=== PATIENT | female | born 1965 | race Caucasian/White ===

== ENCOUNTER 2024-06-15 08:28 | Outpatient (AMB) | payer OTHER, SELFPAY ==
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
[2024-06-15 08:38] VITALS: BP 124/78; PULSE 80; O2SAT 99; BMI 33.9
== END 2024-06-15 09:46 | disposition home or self-care (01) ==
PROVIDERS: PCP Internal Medicine; Visit Provider Nurse Practitioner Family
DX: R25.1 Tremor, unspecified (principal); R42 Dizziness and giddiness; M26.609 Unspecified temporomandibular joint disorder, unspecified side
CPT/HCPCS: 99204

== ENCOUNTER → 2024-06-15 08:28 | Outpatient (BNVA) | payer OTHER, SELFPAY | PROVIDERS: PCP Internal Medicine; Visit Provider Nurse Practitioner Family ==

== ENCOUNTER 2024-12-27 09:19 | Outpatient (AMB) | payer OTHER, SELFPAY ==
[2024-12-27 09:22] VITALS: BMI 34.5
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
[2024-12-27 09:28] VITALS: BP 124/90; PULSE 90; O2SAT 99; BMI 34.4
--- OUTSIDE RECORDS SUMMARY | 2024-12-27 10:10 | XMS_ITS | Clinical Summary ---
Author Organization [facility] Address [address] [place] [address] Care Team Providers Care Government Relations Director Name Role Phone Anshul Mcclellan MD Primary Care Provider Allergies Active Allergy Reactions Criticality Noted Date Comments Erythromycin 10/12/2005 Other Reaction(s): Rash/Dermatitis Pear 02/13/2024 Sulfa (Sulfonamide Antibiotics) Headache 10/12/2005 Medications meclizine (ANTIVERT) 25 mg tablet Take 1 Tablet by mouth 3 times daily as needed (vertigo). 12/06/2023 Active CHEWABLE MULTI VITAMIN ORAL Take by mouth. Active Active Problems Problem Noted Date Diagnosed Date Palpitations 08/10/2024 Overview (11/05/2024): Last Assessment & Plan: Infrequent. Likely a perceptive awareness of premature beats and possibly stress related. That said, it does not sound like she has any high risk or concerning features. I reviewed that if burden increases, we could always repeat a Holter monitor or some other monitor. In addition, I reviewed signs and symptoms to look out for to seek emergency medical care which she verbalized understanding of. Chest pain 08/09/2024 Overview (11/05/2024): Last Assessment & Plan: Atypical in nature and symptoms have essentially resolved with healthier lifestyle and improvement in psychosocial stressors. She has also been seeking therapy for anxiety. I encouraged her in continuing all of these things. However given family history of coronary disease and an uncle and her maternal grandfather, I think it would be reasonable to obtain a screening lipid profile. I have ordered this. Continue surveillance of blood pressure and other modifiable risk factors during PCP visits here forward. No further cardiac testing indicated. Attention deficit hyperactiv ity disorder (ADHD), combined type 09/11/2021 Obesity (BMI 30.0-34.9) 12/29/2018 Diverticulitis 06/01/2018 Overview (11/05/2024): s/p sigmoidectomy August 2018; colostomy takedown December 2018 Low grade squamous intraepit helial lesion (LGSIL) on Papanicolaou smear of cervix 05/31/2017 Overview (11/05/2024): 03/2016 LSIL 04/2016 Neg colpo 04/2017 NSIL HSV-1 (herpes simplex virus 1) infection 010 HSV-2 (herpes simplex virus 2) infection 010 Tinnitus 09/23/2010 Vertigo 09/23/2010 Postconcussion syndrome 10/12/2005 Immunizations Name Administration Dates Next Due Influenza Quadravalent, MDCK , 0.5ml, preservative free (Flucelvax) 6mo and older 08/25/2021,08/27/2018 Influenza Quadravalent, MDCK , 0.5ml, with preservative (Flucelvax) 6mo and older 08/21/2017 Influenza trivalent, 0.5mL, preservative free (Fluarix; FluLaval; Fluzone) ages 6mo and older (Afluria) 3 years and older 08/29/2016 [employer] SARS-CoV-2 COVID -19, vector-nr, rS-Ad26, preservative free 06/11/2021 Td Tetanus diptheria (Tdvax) 7yo and older 07/02 Td, Unspecified 06/04/2003 Surgical History Surgery Date Site/Laterality Comments TONSILLECTOMY PROCEDURE: HISTORICAL TONSILLECTOMY CHOLECYSTECTOMY 12/2016 PROCEDURE: LAPAROSCOPY, CHOLECYSTECTOMY OTHER SURGICAL HISTORY 2018 PROCEDURE: PA LAPAROSCOPY COLECTOMY PARTIAL W/ANASTOMOSIS; COMMENT: Perforated diverticulitis, lysis of adhesions, colectomy OTHER SURGICAL HISTORY PROCEDURE: HISTORY OTHER; COMMENT: mcconnell proceedure for perf divirticulitis 2017 [address] lewis [facility] COLONOSCOPY 2019 PROCEDURE: HISTORICAL COLONOSCOPY; COMMENT: dr lewis OTHER SURGICAL HISTORY PROCEDURE: HISTORY OTHER; COMMENT: Colostomy closure 2018 Medical History Medical History Date Comments Herpes genitalis DX:Herpes genit renzo; COMMENT: outbreaks q2 years Obese DX:Obese Diverticulitis 06/01/2018 DX:Diverticuliti s Family History Medical History Relation Name Comments No Known Problems Daughter Esophageal cancer Father Heart attack Maternal Grandfather Testicular cancer Maternal Grandfather Other: polyps Mother crohns disease Uterine cancer Mother Diabetes Paternal Grandmother No Known Problems Son Crohn's disease Uncle Heart attack Uncle SCD at young ag e Breast cancer Neg Hx Colon cancer Neg Hx Ovarian cancer Neg Hx Relation Name Status Comments Daughter Alive Father esohageal cance r Maternal Grandfather Maternal Grandmother renal d isease Mother Alive Kidney disease, crohns disease Paternal Grandmother diabete s Son Alive Uncle Social History Tobacco Use Types Packs/Day Years Used Date Smoking Tobacco: Never Smokeless Tobacco: Never Alcohol Use Standard Drinks/Week Comments Yes 0 (1 standard drink = 0.6 oz pur e alcohol) Comments Unknown Sex and Gender Information Value Date Recorded Sex Assigned at Not on file Legal Sex Female 7:41 AM EST Gender Identity Not on file Sexual Orientation Not on file Obstetrics History Last Filed Vital Signs Vital Sign Reading Time Taken Comments Blood Pressure 142/90 08/10/2024 8:13 AM EDT Sit ting R Arm Pulse 88 08/10/2024 8:13 AM EDT Temperature - - Respiratory Rate - - Oxygen Saturation - - Inhaled Oxygen Concentration - - Weight 96.2 kg (212 lb) 08/10/2024 8:13 AM EDT Height 168.3 cm (5' 6.25 ) 08/10/2024 8:13 AM ED T Body Mass Index 33.96 08/10/2024 8:13 AM EDT Plan of Treatment Upcoming Encounters Date Type Department Care Team (Late st Contact Info) Description 12/29/2024 9:30 AM EST Appointment Radiology Department [address] [id number] Health Maintenance Due Date Last Done Comments Hepatitis B Vaccines (1 of 3 - 19+ 3-dose series) 1986 Pneumococcal Vaccine: 50+ Years (1 of 1 - PCV) 2017 Zoster Vaccines (1 of 2) 2017 DTaP,Tdap,and Td Vaccines (3 - Td or Tdap) 07/02/2021 07/02/2011, 06/04/2003 Depression Screening 10/09/2022 Social Influencers of Health Screening 10/09/2022 Cervical Cancer Screening: Pap Smear 12/01/2022 12/01/2021, 06/16/2018, 06/16/2018 COVID-19 Vaccine ( season) 2024 06/11/2021 Influenza Vaccine (#1) 2024 , 08/27/2018, 08/21/2017, Additional history exists Breast Cancer Screening 12/03/2025 12/03/19, 11/20/2022, 11/09/2021, Additional history exists Colorectal Cancer Screening: Colonoscopy 12/19/2028 12/19/2018 HIV Screening Completed 06/19/2005 Hepatitis C Screening Completed 01/12/2024 HIB Vaccines Aged Out No longer eligi ble based on patient's age to complete this topic HPV Vaccines Aged Out No longer eligi ble based on patient's age to complete this topic Hepatitis A Vaccines Aged Out No long er eligible based on patient's age to complete this topic IPV Vaccines Aged Out No longer eligi ble based on patient's age to complete this topic MMR Vaccines Aged Out No longer eligi ble based on patient's age to complete this topic Meningococcal ACWY Vaccine Aged Out N o longer eligible based on patient's age to complete this topic Meningococcal B Vacine Aged Out No lo nger eligible based on patient's age to complete this topic Pneumococcal Vaccine: Pediatrics (0 to 5 Years) and At-Risk Patients (6 to 64 Years) Aged Out No longer eligible based on patient's age to complete this topic RSV Immunization Patients Under 20 months Aged Out No longer eligible based on patient's age to complete this topic Varicella Vaccines Aged Out No longer eligible based on patient's age to complete this topic Procedures Procedure Name Priority Date/Time Associated Diagnosis Comments HEPATITIS C SCREENING Routine 01/12/2024 SCREENING MAMMOGRAPHY BI 2-VIEW BREAST INC CAD Routine 12/03/2023 10:29 AM EST Encounter for screening mammogram for malignant neoplasm of breast HM PAP SMEAR Routine 12/01/2021 COLONOSCOPY Routine 12/19/2018 HIV SCREENING Routine 06/19/2005 from Last 3 Months or Most Recently Relevant to Health Maintenance Results * Hepatitis C Screening (01/12/2024) Hepatitis C Screening Abstracted Historical Provider MD HEALTH MAINTENANCE Final Result * SCREENING MAMMOGRAPHY BI 2-VIEW BREAST INC CAD (12/03/2023 10:29 AM EST) Anatomical Region Laterality Modality Radiographic Amber ging 11/20/2022 9:54 AM EST Narrative 12/05/2023 5:40 PM EST This is a summary report. The complete report is available in the patient's medical record. If you cannot access the medical record, please contact the sending organization for a detailed fax or copy. Exam: Screening mammogram Findings: Digital bilateral full-field screening mammography is performed with tomosynthesis and interpreted with the aid of computer-aided detection. ??Comparison is made with 11/20/2022 and as far back as 02/03/2019. Breast parenchyma is heterogeneously dense, which may obscure small masses. ??No new suspicious mass, architectural distortion, or suspicious calcifications. Impression: No mammographic evidence of malignancy. BI-RADS 1 - negative Procedure Note Suly Fleming MD - 06/18/2024 This is a summary report. The complete report is available in thepatient's medical record. If you cannot access the medical record, pleasecontact the sending organization for a detailed fax or copy. Exam: Screening mammogram Findings: Digital bilateral full-field screening mammography is performedwith tomosynthesis and interpreted with the aid of computer-aideddetection. Comparison is made with 11/20/2022 and as far back as02/03/2019. Breast parenchyma is heterogeneously dense, which may obscure smallmasses. No new suspicious mass, architectural distortion, or suspiciouscalcifications. Impression: No mammographic evidence of malignancy. BI-RADS 1 - negative Jeff Teran MD IMG XR PROCEDURES Final Re sult * Pap Smear (12/01/2021) Pap smear No Interpretation , Abstracted Historical Provider HEALTH MAINTENANCE Final Result * Colonoscopy (12/19/2018) Colonoscopy No Interpretation , Abstracted Anatomical Region Laterality Modality Other Historical Provider HEALTH MAINTENANCE Final Result * HIV Screening (06/19/2005) HIV Screening Abstracted Historical Provider HEALTH MAINTENANCE Final Result from Last 3 Months or Most Recently Relevant to Health Maintenance [place] [address] [address] Care Teams Government Relations Director Relationship Specialty Start Date End Date Anshul Mcclellan MD [address] [place] [id number] PCP - General 12/12/23
== END 2024-12-27 10:26 | disposition home or self-care (01) ==
PROVIDERS: PCP Internal Medicine; Visit Provider Nurse Practitioner Family
DX: R25.1 Tremor, unspecified (principal); R42 Dizziness and giddiness; M26.609 Unspecified temporomandibular joint disorder, unspecified side
CPT/HCPCS: 99213

== ENCOUNTER 2025-06-28 10:28 | Outpatient (AMB) | payer OTHER, SELFPAY ==
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
[2025-06-28 10:31] VITALS: BP 128/82; PULSE 82; O2SAT 99; BMI 34.2
--- OUTSIDE RECORDS SUMMARY | 2025-06-28 11:10 | XMS_ITS | Clinical Summary ---
Author Organization [facility] [address] [place] [address] [place] [phone] Phone Care Team Providers Care Manager Hardware Name Role Phone Anshul Mcclellan MD Primary Care Provider Allergies Active Allergy Reactions Criticality Noted Date Comments Erythromycin 10/12/2005 Other Reaction(s): Rash/Dermatitis Pear 02/13/2024 Sulfa (Sulfonamide Antibiotics) Headache 10/12/2005 Medications CHEWABLE MULTI VITAMIN ORAL Take by mouth. Active multivit with minerals/lutein (MULTIVITAMIN 50 PLUS ORAL) Take 1 tablet by mouth. 7 Active pantoprazole (Protonix) 20 mg EC tablet Take 1 tablet (20 mg total) by mouth 1 (one) time each day before breakfast. Do not crush, chew, or split. 90 each 1 5 Active simethicone (Mylanta Gas) 125 mg chewable tablet Chew 1 tablet (125 mg total) every 6 (six) hours if needed (Burping). 360 each 5 Active omega-3 acid ethyl esters (LOVAZA) 1 gram capsule Take 1 capsule (1 g total) by mouth 2 (two) times a day. 06/03/20 25 Discontinu ed(Therapy completed) Active Problems Problem Noted Date Diagnosed Date Diverticula of intestine 04/15/2025 Palpitations 08/10/2024 Overview (11/05/2024): Last Assessment & [...] Tinnitus 09/23/2010 Vertigo 09/23/2010 Postconcussion syndrome 10/12/2005 Encounters Date Type Department Care Team Description 06/03/2025 8:00 AM EDT Office Visit Adult Medicine [address] [phone] Kate Barber PA Routine general medical examination at a health care facility (Primary Dx); Pure hypercholesterolemi a; IFG (impaired fasting glucose) 06/03/2025 Telephone Adult Medicine [address] [phone] Kate Barber PA 05/17/2025 2:40 PM EDT Office Visit Gastroenterology - [address] [place] [phone] Latha Zarco PA Morrell's esophagus without dysplasia (Primary Dx) 04/15/2025 1:21 PM EDT Anesthesia Event [facility] Endoscopy [address] [place] [phone] Rigoberto Monaco MD 04/15/2025 12:30 PM EDT - 04/15/2025 11:59 PM EDT Hospital Encounter [facility] Endoscopy [address] [place] [phone] Everett Elena MD Sobo, Kathleen, DANNIE Family hx colonic polyps; Dyspepsia Discharge Disposition: Home or Self Care 04/10/2025 Telephone Gastroenterology - [address] [place] [phone] Germán Fowler MD 04/09/2025 3:30 PM EDT Consult Gastroenterology - [address] [place] [phone] Lizzy Chandler NP Colon cancer screening (Primary Dx); Burping; Belching symptom 03/28/2025 12:00 PM EDT Office Visit Adult Medicine [address] [phone] Anshul Mcclellan MD Burping (Primary Dx); Belching symptom; Gastroesophageal reflux disease, unspecified whether esophagitis present; Encounter for screening for malignant neoplasm of colon from Last 3 Months Immunizations Name Administration Dates Next Due Influenza Quadravalent, MDCK , 0.5ml, preservative free (Flucelvax) 6mo and older 08/25/2021,08/27/2018 Influenza Quadravalent, MDCK , 0.5ml, with preservative (Flucelvax) 6mo and older 08/21/2017 Influenza trivalent, 0.5mL, preservative free (Fluarix; FluLaval; Fluzone) ages 6mo and older (Afluria) 3 years and older 08/29/2016 [employer] [facility] [employer] SARS-CoV-2 COVID -19, vector-nr, rS-Ad26, preservative free 06/11/2021 Td Tetanus diptheria (Tdvax) 7yo and older 07/02 Td, Unspecified 06/04/2003 Tdap Tetanus diptheria acell ular pertussis (Boostrix; Adacel) 7yo and older 06/03/2025 Surgical History Surgery Date Site/Laterality Comments TONSILLECTOMY PROCEDURE: HISTORICAL TONSILLECTOMY CHOLECYSTECTOMY 12/2016 PROCEDURE: LAPAROSCOPY, CHOLECYSTECTOMY OTHER SURGICAL HISTORY 2018 PROCEDURE: [place] LAPAROSCOPY COLECTOMY PARTIAL W/ANASTOMOSIS; COMMENT: Perforated diverticulitis, lysis of adhesions, colectomy OTHER SURGICAL HISTORY PROCEDURE: HISTORY OTHER; COMMENT: mcconnell proceedure for perf divirticulitis [address] [facility] [place] COLONOSCOPY 2019 PROCEDURE: HISTORICAL COLONOSCOPY; COMMENT: dr lewis OTHER SURGICAL HISTORY PROCEDURE: HISTORY OTHER; COMMENT: Colostomy closure 2019 COLONOSCOPY 04/15/2025 TA x 1, recall 5 years ESOPHAGOGASTRODUODENOSCOPY 04/15/2025 Morrell's esophagus negative for dysplasia, recall 3 years Medical History Medical History Date Comments Herpes genitalis Outbreaks q 2 y ears Obese Diverticulitis GERD (gastroesophageal reflux disease) Family History Medical History Relation Name Comments No Known Problems Brother No Known Problems Daughter Esophageal cancer Father Heart attack Maternal Grandfather Testicular cancer Maternal Grandfather Kidney disease Maternal Grandmother Other: polyps Mother crohns disease , kidney disease, uterine cancer No Known Problems Paternal Grandfather Diabetes Paternal Grandmother No Known Problems Son Crohn's disease Uncle Heart attack Uncle SCD at young ag e Breast cancer Neg Hx Colon cancer Neg Hx Ovarian cancer Neg Hx Relation Name Status Comments Brother Alive Daughter Alive Father Maternal Grandfather Maternal Grandmother Mother Alive Paternal Grandfather Paternal Grandmother Son Alive Uncle Social History Tobacco Use Types Packs/Day Years Used Date Smoking Tobacco: Never Smokeless Tobacco: Never Tobacco Cessation:Counseling Given: Not Answered Alcohol Use Standard Drinks/Week Comments Yes 0 (1 standard drink = 0.6 oz pur e alcohol) rare Housing Instability Answer Date Recorde d Are you worried that in the next 2 months you may not have stable housing? No 06/03/2025 Food Access & Nutrition Answer Date Rec orded Do you have access to a vari ety of food including fruits and vegetables? Yes 06/03/2025 Access to Healthcare Answer Date Record ed Within the last 3 months, ho w many times did you visit the emergency department for your medical care? 0 06/03/2025 Health Literacy Answer Date Recorded How often do you need to hav e someone help you when you read instructions, pamphlets, or other written material from your doctor or pharmacy? Never 06/03/2025 Caregiver: How often do you need to have someone help you when you read instructions, pamphlets, or other written material from your doctor or pharmacy? Not on file 06/03/2025 Financial Risk Answer Date Recorded How hard is it for you to pa y for the very basics like food, housing, medical care, and air conditioning / heating? Not very hard 06/03/2025 Transportation Answer Date Recorded Has the lack of transportati on kept you from meetings, work, or from getting things needed for daily living? No Has the lack of transportati on kept you from medical appointments or from getting medications? Yes 06/03/2025 Social Isolation Answer Date Recorded How often do you feel lonely or isolated from th ose around you? Never 06/03/2025 Food Risk Answer Date Recorded Within the past 12 months we worried whether our food would run out before we got money to buy more. Never true 06/03/2025 Within the past 12 months th e food we bought just didn't last and we didn't have money to get more. Never true 06/03/2025 Dependent Care Answer Date Recorded Do you need help finding or paying for care for your loved ones. For example, child protection specialist or elderly care for an older adult? No 06/03/2025 Education Answer Date Recorded Do you think completing more education or training, like finishing a GED, going to college, or learning a trade, would be helpful for you? No 06/03/2025 Employment and Income Answer Date Recor ded During the last four weeks, have you been actively looking for work? No 06/03/2025 Living Situation Answer Date Recorded What is your living situation? 0 06/03/2025 Interpersonal Safety Answer Date Record ed Physical Abuse 04/15/2025 Verbal Abuse 04/15/2025 Comments No Sex and Gender Information Value Date Recorded Sex Assigned at Female 04/15/2025 12:27 PM EDT Legal Sex Female 7:41 AM EST Gender Identity Female 04/15/2025 12:27 PM EDT Sexual Orientation Straight 04/15/2025 12 :27 PM EDT Occupation Industry Job Start Date Job End Date works for [employer] Not on file Not on file Not on file Obstetrics History Last Filed Vital Signs Vital Sign Reading Time Taken Comments Blood Pressure 132/85 06/03/2025 8:01 AM EDT Pulse 83 06/03/2025 8:01 AM EDT Temperature 36.2 C (97.2 F) 06/03/2025 8:01 AM EDT Respiratory Rate 16 06/03/2025 8:01 AM EDT Oxygen Saturation 99% 06/03/2025 8:01 AM EDT Inhaled Oxygen Concentration - - Weight 98 kg (216 lb) 06/03/2025 8:01 AM EDT Height 168.3 cm (5' 6.25 ) 06/03/2025 8:01 AM ED T Body Mass Index 34.6 06/03/2025 8:01 AM EDT Plan of Treatment Upcoming Encounters Date Type Department Care Team (Late st Contact Info) Description 07/27/2025 10:30 AM EDT Appointment Radiology Department - [address] [phone] 06/10/2026 9:00 AM EDT Office Visit Adult Medicine [address] [phone] Anshul Mcclellan MD [address] [place] [phone] Health Maintenance Due Date Last Done Comments Hepatitis B Vaccines (1 of 3 - 19+ 3-dose series) 1986 Pneumococcal Vaccine: 50+ Years (1 of 1 - PCV) 2017 Zoster Vaccines (1 of 2) 2017 Cholesterol Screening (Lipid Panel) 10/09/2022 06/26/2010 Cervical Cancer Screening: Pap Smear 02/01/2025 02/02/2024, 12/01/2021, 06/16/2018, Additional history exists Influenza Vaccine (#1) 2025 , 08/05/2023, 08/14/2022, Additional history exists Breast Cancer Screening 12/03/2025 12/03/19, 11/20/2022, 11/09/2021, Additional history exists Social Influencers of Health Screening 06/03/2026 06/03/2025 Colorectal Cancer Screening: Colonoscopy 04/15/2030 04/15/2025, 12/19/2018 DTaP,Tdap,and Td Vaccines (4 - Td or Tdap) 06/03/2035 06/03/2025, 07/02/2011, 06/04/2003 HIV Screening Completed 06/19/2005 COVID-19 Vaccine Discontinued 06/11/2021 Hepatitis C Screening Completed 01/12/2024 Depression Screening Completed 06/03/2025 HIB Vaccines Aged Out No longer eligi [...] age to complete this topic Meningococcal B Vaccine Aged Out No l onger eligible based on patient's age to complete this topic RSV Immunization Patients Under 20 months Aged Out No longer eligible based on patient's age to complete this topic Varicella Vaccines Aged Out No longer eligible based on patient's age to complete this topic Procedures Procedure Name Priority Date/Time Associated Diagnosis Comments COLONOSCOPY Routine 04/15/2025 1:55 PM EDT Family hx colonic polyps Dyspepsia EGD Routine 04/15/2025 1:55 PM EDT Family hx colonic polyps Dyspepsia TISSUE EXAM Routine 04/15/2025 1:41 PM EDT Family hx colonic polyps Dyspepsia CBC WITH AUTO DIFFERENTIAL Routine 04/01/2025 7:56 AM EDT Burping Belching symptom Gastroesophageal reflux disease, unspecified whether esophagitis present CBC AND DIFFERENTIAL Routine 04/01/2025 7:56 AM EDT Burping Belching symptom Gastroesophageal reflux disease, unspecified whether esophagitis present COMPREHENSIVE METABOLIC PANEL Routine 04/01/2025 7:56 AM EDT Burping Belching symptom Gastroesophageal reflux disease, unspecified whether esophagitis present HELICOBACTER PYLORI BREATH TEST Routine 04/01/2025 7:56 AM EDT Gastroesophageal reflux disease, unspecified whether esophagitis present HEPATITIS C SCREENING Routine 01/12/2024 SCREENING MAMMOGRAPHY BI 2-VIEW BREAST INC CAD Routine 12/03/2023 10:29 AM EST Encounter for screening mammogram for malignant neoplasm of breast PAP SMEAR Routine 12/01/2021 LIPID PANEL Routine 06/26/2010 HIV SCREENING Routine 06/19/2005 from Last 3 Months or Most Recently Relevant to Health Maintenance Results * COLONOSCOPY Anesthesia - MAC; [facility] ENDOSCOPY (04/15/2025 1:55 PM EDT) Anatomical Region Laterality Modality Endoscopy 04/15/2025 1:21 PM EDT Impressions 04/15/2025 1:57 PM EDT - Patent end-to-end colo-colonic anastomosis, characterized by healthy appearing mucosa. - One 5 mm, bleeding polyp in the sigmoid colon, removed with a hot snare. Resected and retrieved. Injected. - Internal hemorrhoids. Recommendation: - Await pathology results. - Repeat colonoscopy is recommended for surveillance. The colonoscopy date will be determined after pathology results from today's exam become available for review. Narrative 04/15/2025 1:[address] [facility] GI Patient Name: Jerome Motta Procedure Date: 04/15/2025 1:21 PM Date of : 1965 Age: 59 Gender: Female Note Status: Finalized Attending MD: Everett Elena MD, Procedure Date No Time: 04/15/2025 Procedure: Colonoscopy Indications: Screening for colorectal malignant neoplasm Providers: Everett Elena MD Referring MD: Everett Elena MD Medicines: Monitored Anesthesia Care Complications: No immediate complications. Estimated blood loss: Minimal. Estimated Blood Loss: Estimated blood loss was minimal. Procedure: Pre-Anesthesia Assessment: - Prior to the procedure, a History and Physical was performed, and patient medications and allergies were reviewed. The patient is competent. The risks and benefits of the procedure and the sedation options and risks were discussed with the patient. All questions were answered and informed consent was obtained. Patient identification and proposed procedure were verified by the physician, the nurse, the plastics worker and the flight test data acquisition technician in the pre-procedure area in the endoscopy suite. Mental Status Examination: alert and oriented. Airway Examination: normal oropharyngeal airway and neck mobility. Respiratory Examination: clear to auscultation. CV Examination: normal. Prophylactic Antibiotics: The patient does not require prophylactic antibiotics. Prior Anticoagulants: The patient has taken no anticoagulant or antiplatelet agents. ASA Grade Assessment: III - A patient with severe systemic disease. After reviewing the risks and benefits, the patient was deemed in satisfactory condition to undergo the procedure. The anesthesia plan was to use monitored anesthesia care (MAC). Immediately prior to administration of medications, the patient was re-assessed for adequacy to receive sedatives. The heart rate, respiratory rate, oxygen saturations, blood pressure, adequacy of pulmonary ventilation, and response to care were monitored throughout the procedure. The physical status of the patient was re-assessed after the procedure. After I obtained informed consent, the scope was passed under direct vision. Throughout the procedure, the patient's blood pressure, pulse, and oxygen saturations were monitored continuously.The Olympus Colonoscope was introduced through the anus and advanced to the cecum, identified by appendiceal orifice and ileocecal valve. The colonoscopy was performed without difficulty. The patient tolerated the procedure well. The quality of the bowel preparation was good except the ascending colon was fair. Findings: The perianal and digital rectal examinations were normal. There was evidence of a prior end-to-end colo-colonic anastomosis in the sigmoid colon. This was patent and was characterized by healthy appearing mucosa. The anastomosis was traversed. A 5 mm, bleeding polyp was found in the sigmoid colon. The polyp was flat. Area was successfully injected with 1 mL of a 0.1 mg/mL solution of epinephrine for hemostasis. The polyp was removed with a hot snare. Resection and retrieval were complete. Estimated blood loss: Minimal. Internal hemorrhoids were found during retroflexion. The hemorrhoids were Grade I (internal hemorrhoids that do not prolapse). Procedure Code(s): --- Professional --- 94072, Colonoscopy, flexible; with removal of tumor(s), polyp(s), or other lesion(s) by snare technique Diagnosis Code(s): --- Professional --- D12.5, Benign neoplasm of sigmoid colon CPT copyright 2020 [employer]. All rights reserved. The codes documented in this report are preliminary and upon guest services officer review may be revised to meet current compliance requirements. Everett Elena MD 04/15/2025 1:57:13 PM This report has been signed electronically.Everett Elena MD Number of Addenda: 0 Note Initiated On: 04/15/2025 1:21 PM Scope Withdrawal Time: 0 hours 12 minutes 43 seconds Scope In: 1:28:07 PM Scope Out: 1:44:52 PM Endoscopy Department at [facility] - [address] [place] [phone] Procedure Note Everett Elena MD - 04/15/2025 [facility] GI Patient Name: Jerome Motta Procedure Date: 04/15/2025 1:21 PM Date of : 1965 Age: 59 Gender: Female Note Status: Finalized Attending MD: Everett Elena MD, Procedure Date No Time: 04/15/2025 Procedure: Colonoscopy Indications: Screening for colorectal malignant neoplasm Providers: Everett Elena MD Referring MD: Everett Elena MD Medicines: Monitored Anesthesia Care Complications: No immediate complications. Estimated blood loss: Minimal. Estimated Blood Loss: Estimated blood loss was minimal. Procedure: Pre-Anesthesia Assessment: - Prior to the procedure, a History and Physicalwas performed, and patient medications and allergieswere reviewed. The patient is competent. The risks and benefits of the procedure and the sedation optionsand risks were discussed with the patient. Allquestions were answered and informed consent was obtained. Patient identification and proposed procedure were verified by the physician, the nurse, theanesthetist and the flight test data acquisition technician in the pre-procedure area in the endoscopy suite. Mental Status Examination: alertand oriented. Airway Examination: normal oropharyngeal airway and neck mobility. Respiratory Examination: clear to auscultation. CV Examination: normal. Prophylactic Antibiotics: The patient does notrequire prophylactic antibiotics. Prior Anticoagulants: The patient has taken no anticoagulant or antiplatelet agents. ASA Grade Assessment: III - A patient with severe systemic disease. After reviewing the risksand benefits, the patient was deemed in satisfactory condition to undergo the procedure. The anesthesia plan was to use monitored anesthesia care (MAC). Immediately prior to administration of medications, the patient was re-assessed for adequacy to receive sedatives. The heart rate, respiratory rate, oxygen saturations, blood pressure, adequacy of pulmonary ventilation, and response to care were monitored throughout the procedure. The physical status ofthe patient was re-assessed after the procedure. After I obtained informed consent, the scope was passed under direct vision. Throughout theprocedure, the patient's blood pressure, pulse, and oxygen saturations were monitored continuously.The Olympus Colonoscope was introduced through the anus and advanced to the cecum, identified by appendiceal orifice and ileocecal valve. The colonoscopy was performed without difficulty. The patient tolerated the procedure well. The quality of the bowel preparation was good except the ascending colon was fair. Findings: The perianal and digital rectal examinations were normal. There was evidence of a prior oyy-xg-imelbpj-colonic anastomosis in the sigmoid colon. This was patentand was characterized by healthy appearing mucosa. The anastomosis was traversed. A 5 mm, bleeding polyp was found in the sigmoidcolon. The polyp was flat. Area was successfully injected with 1 mL of a 0.1 mg/mL solution of epinephrinefor hemostasis. The polyp was removed with a hot snare. Resection and retrieval were complete. Estimatedblood loss: Minimal. Internal hemorrhoids were found duringretroflexion. The hemorrhoids were Grade I (internal hemorrhoids that do not prolapse). Procedure Code(s): --- Professional --- 16146, Colonoscopy, flexible; with removal of tumor(s), polyp(s), or other lesion(s) by snare technique Diagnosis Code(s): --- Professional --- D12.5, Benign neoplasm of sigmoid colon CPT copyright 2020 [employer]. All rights reserved. The codes documented in this report are preliminary and upon guest services officer reviewmay be revised to meet current compliance requirements. Everett Elena MD 04/15/2025 1:57:13 PM This report has been signed electronically.Everett Elena MD Number of Addenda: 0 Note Initiated On: 04/15/2025 1:21 PM Scope Withdrawal Time: 0 hours 12 minutes 43 seconds Scope In: 1:28:07 PM Scope Out: 1:44:52 PM Endoscopy Department at [facility] - [address] [place] [phone] IMPRESSION: - Patent end-to-end colo-colonic anastomosis, characterized by healthy appearing mucosa. - One 5 mm, bleeding polyp in the sigmoid colon, removed with a hot snare. Resected and retrieved. Injected. - Internal hemorrhoids. Recommendation: - Await pathology results. - Repeat colonoscopy is recommended forsurveillance. The colonoscopy date will be determined after pathology results from today's exam becomeavailable for review. Everett Elena MD GI~PROCEDURE ORDERABLES Fin al Result * EGD Anesthesia - MAC; [facility] ENDOSCOPY (04/15/2025 1:55 PM EDT) Anatomical Region Laterality Modality Endoscopy 04/15/2025 1:21 PM EDT Impressions 04/15/2025 1:55 PM EDT - Normal examined duodenum. - Multiple fundic gland polyps. - Normal mucosa was found in the entire stomach. - Small hiatal hernia. - GERD, as evident by free flow of gastric contents into the esophagus. - Granular mucosa in the esophagus. Biopsied. Recommendation: - Await pathology results. - Follow an antireflux regimen. - Use a proton pump inhibitor PO daily. Narrative 04/15/2025 1:[address] [facility] GI Patient Name: Jerome Motta Procedure Date: 04/15/2025 1:21 PM Date of : 1965 Age: 59 Gender: Female Note Status: Finalized Attending MD: Everett Elena MD, Procedure Date No Time: 04/15/2025 Procedure: Upper GI endoscopy Indications: Heartburn Providers: Everett Elena MD Referring MD: Everett Elena MD Medicines: Monitored Anesthesia Care Complications: No immediate complications. Estimated blood loss: Minimal. Estimated Blood Loss: Estimated blood loss was minimal. Procedure: Pre-Anesthesia Assessment: - Prior to the procedure, a History and Physical was performed, and patient medications and allergies were reviewed. The patient is competent. The risks and benefits of the procedure and the sedation options and risks were discussed with the patient. All questions were answered and informed consent was obtained. Patient identification and proposed procedure were verified by the physician, the nurse, the plastics worker and the flight test data acquisition technician in the pre-procedure area in the endoscopy suite. Mental Status Examination: alert and oriented. Airway Examination: normal oropharyngeal airway and neck mobility. Respiratory Examination: clear to auscultation. CV Examination: normal. Prophylactic Antibiotics: The patient does not require prophylactic antibiotics. Prior Anticoagulants: The patient has taken no anticoagulant or antiplatelet agents. ASA Grade Assessment: III - A patient with severe systemic disease. After reviewing the risks and benefits, the patient was deemed in satisfactory condition to undergo the procedure. The anesthesia plan was to use monitored anesthesia care (MAC). Immediately prior to administration of medications, the patient was re-assessed for adequacy to receive sedatives. The heart rate, respiratory rate, oxygen saturations, blood pressure, adequacy of pulmonary ventilation, and response to care were monitored throughout the procedure. The physical status of the patient was re-assessed after the procedure. After obtaining informed consent, the endoscope was passed under direct vision. Throughout the procedure, the patient's blood pressure, pulse, and oxygen saturations were monitored continuously.The Endoscope was introduced through the mouth, and advanced to the second part of duodenum. The upper GI endoscopy was accomplished without difficulty. The patient tolerated the procedure. Findings: The examined duodenum was normal. Multiple small sessile fundic gland polyps with no bleeding and no stigmata of recent bleeding were found in the entire examined stomach. Normal mucosa was found in the entire examined stomach. A small hiatal hernia was present. Gastroesophageal reflux is evident by free flow of gastric contents in the middle third of the esophagus and in the lower third of the esophagus. Localized moderate mucosal changes characterized by granularity were found in the lower third of the esophagus. Biopsies were taken with a cold forceps for histology. Estimated blood loss was minimal. Procedure Code(s): --- Professional --- 05892, Esophagogastroduodenoscopy, flexible, transoral; with biopsy, single or multiple Diagnosis Code(s): --- Professional --- K44.9, Diaphragmatic hernia without obstruction or gangrene K22.89, Other specified disease of esophagus K21.9, Gastro-esophageal reflux disease without esophagitis CPT copyright 2020 [employer]. All rights reserved. The codes documented in this report are preliminary and upon guest services officer review may be revised to meet current compliance requirements. Everett Elena MD 04/15/2025 1:55:01 PM This report has been signed electronically.Everett Elena MD Number of Addenda: 0 Note Initiated On: 04/15/2025 1:21 PM Scope In: Scope Out: Endoscopy Department at [facility] - [address] [place] [id number] Procedure Note Everett Elena MD - 04/15/2025 [facility] GI Patient Name: Jerome Motta Procedure Date: 04/15/2025 1:21 PM Date of : 1965 Age: 59 Gender: Female Note Status: Finalized Attending MD: Everett Elena MD, Procedure Date No Time: 04/15/2025 Procedure: Upper GI endoscopy Indications: Heartburn Providers: Everett Elena MD Referring MD: Everett Elena MD Medicines: Monitored Anesthesia Care Complications: No immediate complications. Estimated blood loss: Minimal. Estimated Blood Loss: Estimated blood loss was minimal. Procedure: Pre-Anesthesia Assessment: - Prior to the procedure, a History and Physicalwas performed, and patient medications and allergieswere reviewed. The patient is competent. The risks and benefits of the procedure and the sedation optionsand risks were discussed with the patient. Allquestions were answered and informed consent was obtained. Patient identification and proposed procedure were verified by the physician, the nurse, theanesthetist and the flight test data acquisition technician in the pre-procedure area in the endoscopy suite. Mental Status Examination: alertand oriented. Airway Examination: normal oropharyngeal airway and neck mobility. Respiratory Examination: clear to auscultation. CV Examination: normal. Prophylactic Antibiotics: The patient does notrequire prophylactic antibiotics. Prior Anticoagulants: The patient has taken no anticoagulant or antiplatelet agents. ASA Grade Assessment: III - A patient with severe systemic disease. After reviewing the risksand benefits, the patient was deemed in satisfactory condition to undergo the procedure. The anesthesia plan was to use monitored anesthesia care (MAC). Immediately prior to administration of medications, the patient was re-assessed for adequacy to receive sedatives. The heart rate, respiratory rate, oxygen saturations, blood pressure, adequacy of pulmonary ventilation, and response to care were monitored throughout the procedure. The physical status ofthe patient was re-assessed after the procedure. After obtaining informed consent, the endoscope was passed under direct vision. Throughout theprocedure, the patient's blood pressure, pulse, and oxygen saturations were monitored continuously.TheEndoscope was introduced through the mouth, and advanced tothe second part of duodenum. The upper GI endoscopy was accomplished without difficulty. The patienttolerated the procedure. Findings: The examined duodenum was normal. Multiple small sessile fundic gland polyps with no bleeding and no stigmata of recent bleeding werefound in the entire examined stomach. Normal mucosa was found in the entire examinedstomach. A small hiatal hernia was present. Gastroesophageal reflux is evident by free flow of gastric contents in the middle third of theesophagus and in the lower third of the esophagus. Localized moderate mucosal changes characterized by granularity were found in the lower third of the esophagus. Biopsies were taken with a cold forcepsfor histology. Estimated blood loss was minimal. Procedure Code(s): --- Professional --- 08378, Esophagogastroduodenoscopy, flexible, transoral; with biopsy, single or multiple Diagnosis Code(s): --- Professional --- K44.9, Diaphragmatic hernia without obstruction or gangrene K22.89, Other specified disease of esophagus K21.9, Gastro-esophageal reflux disease without esophagitis CPT copyright 2020 [employer]. All rights reserved. The codes documented in this report are preliminary and upon guest services officer reviewmay be revised to meet current compliance requirements. Everett Elena MD 04/15/2025 1:55:01 PM This report has been signed electronically.Everett Elena MD Number of Addenda: 0 Note Initiated On: 04/15/2025 1:21 PM Scope In: Scope Out: Endoscopy Department at [facility] - [address] [place] [phone] IMPRESSION: - Normal examined duodenum. - Multiple fundic gland polyps. - Normal mucosa was found in the entire stomach. - Small hiatal hernia. - GERD, as evident by free flow of gastric contents into the esophagus. - Granular mucosa in the esophagus. Biopsied. Recommendation: - Await pathology results. - Follow an antireflux regimen. - Use a proton pump inhibitor PO daily. us Everett Elena MD GI~PROCEDURE ORDERABLES Fin al Result * Tissue exam (04/15/2025 1:41 PM EDT) Addendum Tissue was requested by Dr. Elena and sent to [facility], [place], [place] (CLIA#[id number]), for TissueCypher-Timo's Esophagus. Their report is as follows: Result: Not Reportable Notes: The specimen did not pass quality assessments due to insufficient area of evaluable tissue containing Morrell's mucosa. Digitally signed by Shivani Murdock MD, Consulting Pathologist Date: 05/29/2025 (Full report on file) 10:11 AM EDT [facility] Addendum electronically signed by Melissa Henson MD on 06/04/2025 at 10:11 AM Final Diagnosis A. Large Intestine, Sigmoid Colon, polyp x1: - Tubular adenoma. B. Esophagus, lower biopsies: - Esophageal squamous mucosa with reactive changes and rare intraepithelial eosinophil (up to 1 eosinophil per hpf). - Minute piece of enteric epithelium with goblet cells. (See note) Note: It is unclear if enteric epithelium with goblet cells represents Morrell's mucosa versus specimen contamination from part A. Please clinicopathologically correlate with endoscopy findings. 10:11 AM EDT [facility] Gross Description A. Large Intestine, Sigmoid Colon, polyp x1: Labeled Sig colon polyp x 1 . Received in formalin is a 0.3 cm irregular daly mucosal tissue fragment which is wrapped in paper and submitted in toto in one cassette, one piece, multiple levels on one slide. B. Esophagus, lower biopsies: Labeled esophagus, lower . Received in formalin is a 0.2 cm irregular pink-white mucosal tissue fragment which is wrapped in paper and submitted in toto in one cassette, one piece, multiple levels on one slide. DIMITRI 10:11 AM EDT [facility] Disclaimer Unless otherwise specified, all tissue is 10% NB formalin fixed and paraffin embedded. 10:11 AM EDT [facility] Tissue Sigmoid colon structure / Unknown 04/15/2025 1:41 PM EDT 04/15/2025 4:09 PM EDT Tissue specimen (specimen) Esophageal structure / Unknown 04/15/2025 1:51 PM EDT 04/15/2025 4:09 PM EDT Everett Elena MD LAB PATHOLOGY ORDERABLES Ed ited Result - Final [facility] [address] [place] [address], * (ABNORMAL) CBC auto differential (04/01/2025 7:56 AM EDT) WBC 7.1 4.8 - 10.8 K/mcL LAB HEMETOLOGY METHOD 04/01/2025 10:53 AM EDT [facility] RBC 4.90(H) 3.80 - 4.80 M/mcL LAB HEMETOLOGY METHOD 04/01/2025 10:53 AM EDT [facility] Hemoglobin 13.6 11.5 - 16.0 g/dL LAB HEMETOLOGY METHOD 04/01/2025 10:53 AM [facility] Hematocrit 42.3 35.0 - 47.0 % LAB HEMETOLOGY METHOD 04/01/2025 10:53 AM [facility] MCV 86.5 79.0 - 98.0 FL LAB HEMETOLOGY METHOD 04/01/2025 10:53 AM [facility] MCH 27.8 27.0 - 32.0 pcg LAB HEMETOLOGY METHOD 04/01/2025 10:53 AM [facility] MCHC 32.2 32.0 - 37.0 g/dL LAB HEMETOLOGY METHOD 04/01/2025 10:53 AM [facility] RDW 12.9 11.0 - 15.0 % LAB HEMETOLOGY METHOD 04/01/2025 10:53 AM [facility] Platelets 381 130 - 400 K/mcL LAB HEMETOLOGY METHOD 04/01/2025 10:53 AM [facility] MPV 10.2 7.0 - 11.0 FL LAB HEMETOLOGY METHOD 04/01/2025 10:53 AM [facility] NRBC 0.0 <1.0 % LAB HEMETOLOGY METHOD 04/01/2025 10:53 AM [facility] NRBC Absolute 0.00 <0.10 K/mcL LAB HEMETOLOGY METHOD 04/01/2025 10:53 AM [facility] Neutrophils Relative 65.2 % LAB HEMETOLOGY METHOD 04/01/2025 10:53 AM [facility] Lymphocytes Relative 24.7 % LAB HEMETOLOGY METHOD 04/01/2025 10:53 AM [facility] Monocytes Relative 7.1 % LAB HEMETOLOGY METHOD 04/01/2025 10:53 AM [facility] Eosinophils Relative 1.8 % LAB HEMETOLOGY METHOD 04/01/2025 10:53 AM EDT [facility] Basophils Relative 0.8 % LAB HEMETOLOGY METHOD 04/01/2025 10:53 AM EDT [facility] Immature Granulocytes Relative 0.4 % LAB HEMETOLOGY METHOD 04/01/2025 10:53 AM EDT [facility] Neutrophils Absolute 4.61 1.50 - 7.00 K/mcL LAB HEMETOLOGY METHOD 04/01/2025 10:53 AM EDT [facility] Lymphocytes Absolute 1.75 1.00 - 5.00 K/mcL LAB HEMETOLOGY METHOD 04/01/2025 10:53 AM EDT [facility] Monocytes Absolute 0.50 0.20 - 1.00 K/mcL LAB [facility]OLOG[facility] Eosin[facility] Absolute 0.13 0.00 - 0.50 K/mcL LAB HEMETOLOGY METHOD 04/01/2025 10:53 AM EDT [facility] Basophils Absolute 0.06 0.00 - 0.20 K/mcL LAB HEMETOLOGY METHOD 04/01/2025 10:53 AM EDT [facility] Immature Granulocytes Absolute 0.03 0.00 - 0.03 K/mcL LAB HEMETOLOGY METHOD 04/01/2025 10:53 AM [facility] Blood Venous blood specimen / Unknown Venipuncture / Unknown 04/01/2025 7:56 AM EDT 04/01/2025 8:03 AM EDT us Anshul Mcclellan MD LAB BLOOD ORDERABLES F inal Result [facility] [address] [place] [address], * Helicobacter pylori breath test (04/01/2025 7:56 AM EDT) H Pylori Breath Test Negative Negative LAB CHEMISTRY METHOD 04/01/2025 10:58 AM [facility] Breath Oral cavity structure / Unknown Non-blood Collection / Unknown 04/01/2025 7:56 AM EDT 04/01/2025 8:03 AM EDT Anshul Mcclellan MD LAB BODY FLUIDS AND ST OOLS ORDERABLES Final Result [facility] [address] [place] [address], [place] [phone] * Comprehensive metabolic panel (04/01/2025 7:56 AM EDT) Pathologist [facility] Sodium 139 133 - 145 mmol/L LAB CHEMISTRY METHOD 04/01/2025 11:21 AM [facility] Potassium 4.0 3.5 - 5.5 mmol/L LAB CHEMISTRY METHOD 04/01/2025 11:21 AM [facility] Chloride 107 96 - 110 mmol/L LAB CHEMISTRY METHOD 04/01/2025 11:21 AM [facility] CO2 26 21 - 32 mmol/L LAB CHEMISTRY METHOD 04/01/2025 11:21 AM [facility] Anion Gap 6 3 - 11 LAB CHEMISTRY METHOD 04/01/2025 11:21 AM [facility] Glucose 100 70 - 100 mg/dL LAB CHEMISTRY METHOD 04/01/2025 11:21 AM [facility] BUN 15 5 - 25 mg/dL LAB CHEMISTRY METHOD 04/01/2025 11:21 AM [facility] Creatinine 0.94 0.50 - 1.10 mg/dL LAB CHEMISTRY METHOD 04/01/2025 11:21 AM [facility] eGFR 71 >=60 mL/min/1. 73m2 LAB CHEMISTRY METHOD 04/01/2025 11:21 AM [facility] Comment:Calculation based on the Chronic Kidney Disease Epidemiology Collaboration (CKD-EPI) equation refit without adjustment for race. BUN/Creatinine Ratio 16.0 LAB CHEMISTRY METHOD 04/01/2025 11:21 AM [facility] Calcium 9.5 8.5 - 10.5 mg/dL LAB CHEMISTRY METHOD 04/01/2025 11:21 AM [facility] AST (SGOT) 13 10 - 42 unit/L LAB CHEMISTRY METHOD 04/01/2025 11:21 AM [facility] ALT (SGPT) 33 10 - 60 unit/L LAB CHEMISTRY METHOD 04/01/2025 11:21 AM [facility] Alkaline Phosphatase 101 42 - 121 unit/L LAB CHEMISTRY METHOD 04/01/2025 11:21 AM [facility] Total Protein 7.4 6.0 - 8.0 g/dL LAB CHEMISTRY METHOD 04/01/2025 11:21 AM [facility] Albumin 3.9 3.2 - 5.0 g/dL LAB CHEMISTRY METHOD 04/01/2025 11:21 AM [facility] Total Bilirubin 0.5 0.0 - 1.4 mg/dL LAB CHEMISTRY METHOD 04/01/2025 11:21 AM [facility] Blood Venous blood specimen / Unknown Venipuncture / Unknown 04/01/2025 7:56 AM EDT 04/01/2025 8:03 AM EDT Anshul Mcclellan MD LAB BLOOD ORDERABLES F inal Result [facility] [address] [place] [address], [place] [phone] * Hepatitis C Screening (01/12/2024) Pathologist [facility] Hepatitis C Screening Abstracted us Historical Provider [facility] Final Result * SCREENING MAMMOGRAPHY BI [...] interpreted with the aid of computer-aided detection. Comparison is made with 11/20/2022 and as far back as 02/03/2019. Breast parenchyma is heterogeneously dense, which may obscure small masses. No new suspicious mass, architectural distortion, or suspicious [...] IMG XR PROCEDURES Final Re sult * Hm Pap Smear (12/01/2021) Pap smear No Interpretation , Abstracted Historical Provider [facility] Final Result * (ABNORMAL) Lipid panel (06/26/2010) LDL/HDL Ratio 4 0 - 4 Triglycerides 97 0 - 150 mg/dL Cholesterol 202(A) 0 - 200 mg/dL HDL 54 >=40 mg/dL LDL Cholesterol 129(A) 0 - 100 mg/dL Blood Venous blood specimen / Unknown Historical Provider LAB BLOOD ORDERABLES Solange l Result * HIV Screening (06/19/2005) Pathologist [facility] HIV Screening Abstracted Historical Provider HEALTH MAINTENANCE Final Result from Last 3 Months or Most Recently Relevant to Health Maintenance Insurance [facility] Care Teams Manager Hardware Relationship Specialty Start Date End Date Anshul Mcclellan MD [address] [place] [phone] PCP - General 12/12/23
--- OUTSIDE RECORDS SUMMARY | 2025-06-28 11:10 | XMS_ITS ---
[facility] Care Team Organization Name Specialty Phone Email Start Date End Da veronica [facility] 09/07/2022 06/18/2024
== END 2025-06-28 11:44 | disposition home or self-care (01) ==
LOC: HO.HSMS 10:29
PROVIDERS: PCP Internal Medicine; Visit Provider Nurse Practitioner Family
DX: R25.1 Tremor, unspecified (principal); R42 Dizziness and giddiness; M26.609 Unspecified temporomandibular joint disorder, unspecified side
CPT/HCPCS: 99213